=== PATIENT | male | born 1950 | race Caucasian/White ===

== ENCOUNTER 2021-02-23 14:21 | Emergency (ER) | payer OTHER ==
[~2021-02-23] VITALS: Ht 180.3 cm; Wt 108.9 kg
== END 2021-02-23 18:45 | disposition home or self-care (01) ==
LOC: FER 14:21
DX: S01.01XA Laceration without foreign body of scalp, initial encounter (principal); Z23 Encounter for immunization; W10.9XXA Fall (on) (from) unspecified stairs and steps, initial encounter; Y92.89 Other specified places as the place of occurrence of the external cause; Y99.0 Civilian activity done for income or pay
CPT/HCPCS: 70450; 90471; 90715

== ENCOUNTER 2021-03-02 08:14 | Emergency (ER) | payer OTHER, MEDICARE | END 2021-03-02 09:14 | disposition home or self-care (01) | LOC: FER 08:14 | DX: S01.01XD Laceration without foreign body of scalp, subsequent encounter (principal); I10 Essential (primary) hypertension; F17.200 Nicotine dependence, unspecified, uncomplicated; W11.XXXD Fall on and from ladder, subsequent encounter | CPT/HCPCS: 99281 ==